=== PATIENT | male | born 1995 | race American Indian/Alaskan Native ===

== ENCOUNTER 2017-02-19 04:41 | Emergency (ER) | payer MEDICAID ==
[2017-02-19 05:01] VITALS: BP 121/84
[2017-02-19] MEDS ORDERED: TYLENOL ONE (05:02)
[2017-02-19] MEDS ORDERED: TYLENOL PO ONE (05:02)
[2017-02-19 05:42] LABS: Basophils % (Auto) 0.1 % (0.0-1.8); Eosinophils % (Auto) 0.1 % (0.0-4.3); Hematocrit 45.8 % (35.5-45.6); Hemoglobin 14.9 gm/dl (11.8-15.2); Mean Corpuscular HGB Conc 33 % (32-34); Mean Corpuscular Hemoglobin 27 pg (28-32); Mean Corpuscular Volume 83 fl (84-94); Platelet Count 247 K/mm3 (140-440); Red Blood Count 5.56 M/mm3 (3.65-5.03); Red Cell Distribution Width 15.6 % (13.2-15.2)
[2017-02-19 06:13] LABS: Anion Gap 17 mmol/L; Blood Urea Nitrogen 10 mg/dL (9-20); Carbon Dioxide 26 mmol/L (22-30); Chloride 101.9 mmol/L (98-107); Glucose 97 mg/dL (75-100); Potassium 4.1 mmol/L (3.6-5.0); Sodium 141 mmol/L (137-145)
[2017-02-19] MEDS ORDERED: PERCOCET 5/325 PO ONE (06:33)
--- NOTE | 2017-02-19 06:38 | Emergency Department Report ---
Chief Complaint: Rectal Pain Stated Complaint: HEMORRHOIDS Time Seen by Provider: 02/19/17 05:45 - HPI History of Present Illness: Patient here complaining of rectal pain and states he has a hemorrhoid since yesterday. Last bowel movement was 3 days ago. Denies any rectal bleeding. Denies any nausea or vomiting. Denies any fever or chills. Patient has a history of multiple abscess and anemia. Reports pain is 8-9 out of 10. - ROS Review of Systems: All systems are negative unless stated in HPI above - Exam Vital Signs: Vital Signs 02/19/17 04:54 Temperature 98.7 F Pulse Rate 105 H Respiratory 20 Rate Blood Pressure 121/84 O2 Sat by Pulse 99 Oximetry Physical Exam: Gen.: This is a 21-year-old male well-nourished well-developed in no acute distress. Rectal: No hemorrhoids noted. No overt signs of bleeding. Patient with tender indurated area to buttocks MSE screening note: Focused history and physical exam performed. Due to findings the following was ordered:see [facility] ED Medical Decision Making - Lab Data Result diagrams: 02/19/17 05:10 02/19/17 05:10 Lab Results 02/19/17 02/19/17 02/19/17 Range/Units 05:10 05:10 06:09 WBC 16.0 H (4.5-11.0) K/mm3 RBC 5.56 H (3.65-5.03) M/mm3 Hgb 14.9 (11.8-15.2) gm/dl Hct 45.8 H (35.5-45.6) % MCV 83 L (84-94) fl MCH 27 L (28-32) pg MCHC 33 (32-34) % RDW 15.6 H (13.2-15.2) % Plt Count 247 (140-440) K/mm3 Lymph % (Auto) 12.6 L (13.4-35.0) % [place] % (Auto) 6.9 (0.0-7.3) % Eos % (Auto) 0.1 (0.0-4.3) % Baso % (Auto) 0.1 (0.0-1.8) % Lymph # 2.0 (1.2-5.4) K/mm3 [place] # 1.1 H (0.0-0.8) K/mm3 Eos # 0.0 (0.0-0.4) K/mm3 Baso # 0.0 (0.0-0.1) K/mm3 Seg Neutrophils % 80.3 H (40.0-70.0) % Seg Neutrophils # 12.9 H (1.8-7.7) K/mm3 Sodium 141 (137-145) mmol/L Potassium 4.1 (3.6-5.0) mmol/L Chloride 101.9 (98-107) mmol/L Carbon Dioxide 26 (22-30) mmol/L Anion Gap 17 mmol/L BUN 10 (9-20) mg/dL Creatinine 1.0 (0.8-1.5) mg/dL Estimated GFR > 60 ml/min BUN/Creatinine Ratio 10.00 % Glucose 97 (75-100) mg/dL Lactic Acid 0.70 (0.7-2.0) mmol/L Calcium 10.0 (8.4-10.2) mg/dL Urine culture pending Urinalysis ordered and pending Blood cultures ordered and pending - Medical Decision Making MDM: Patient screened by provider and appropriate orders placed. Patient noted to have elevated white count. Additional orders for urine UA and cultures, pain medication and blood cultures. Patient is stable at present awaiting INT to be place. ED Disposition for MSE Condition: Stable
[2017-02-19 07:12] LABS: Alanine Aminotransferase 31 units/L (7-56); Albumin 4.6 g/dL (3.9-5); Albumin/Globulin Ratio 1.3 %; Alkaline Phosphatase 74 units/L (35-129); Total Protein 8.1 g/dL (6.3-8.2)
[2017-02-19 07:14] LABS: Bilirubin,Direct < 0.2 mg/dL (0-0.2); Bilirubin,Indirect 0.1 mg/dL
[2017-02-19 07:36] LABS: Bilirubin,Urine SM (Negative); Blood,Urine NEG (Negative); Ketones,Urine TR mg/dL (Negative); Leukocyte Esterase,Urine NEG (Negative); Mucus,Urine 3+ /HPF; Nitrite,Urine NEG (Negative)
--- NOTE | 2017-02-19 08:49 | Emergency Department Report ---
ED General Adult HPI - General Chief complaint: Rectal Pain Stated complaint: HEMORRHOIDS Time Seen by Provider: 02/19/17 06:37 Source: patient Mode of arrival: Ambulatory Limitations: No Limitations - History of Present Illness Initial comments: Patient is a 21-year-old male here with complaint of multiple skin lesions and pain around the rectum. Patient likely has a history of hidradenitis suppurativa and has had multiple lesions in the past. The last few days he's had worsening pain around his buttocks. Denies fevers chills nausea vomiting. Last bowel movement approximately 3 days ago. -: Gradual, days(s) (3) Location: buttocks Radiation: non-radiation Severity scale (0 -10): 8 Consistency: constant Improves with: none Worsens with: none Associated Symptoms: denies other symptoms - Related Data Previous Rx's Medication Instructions Recorded Last Taken Type Clindamycin [Clindamycin CAP] 300 mg PO Q8H #30 cap 02/19/17 Unknown Rx Docusate Sodium [Colace] 100 mg PO BID PRN #30 capsule 02/19/17 Unknown Rx Ibuprofen [Motrin] 600 mg PO Q8H PRN #30 tablet 02/19/17 Unknown Rx Allergies Allergy/AdvReac Type Severity Reaction Status Date / Time peanut Allergy Swelling Verified 10/30/14 04:17 ED Review of Systems ROS: Stated complaint: HEMORRHOIDS Other details as noted in HPI Comment: All other systems reviewed and negative Constitutional: denies: chills, fever ENT: denies: ear pain Respiratory: denies: cough, orthopnea Cardiovascular: denies: chest pain Endocrine: denies: see HPI, excessive sweating Gastrointestinal: constipation. denies: abdominal pain, nausea, diarrhea Musculoskeletal: denies: back pain Neurological: denies: headache, weakness Psychiatric: denies: anxiety, depression ED Past Medical Hx - Past Medical History Previous Medical History?: Yes Additional medical history: anemia - Surgical History Past Surgical History?: Yes Additional Surgical History: foot surgery. - Family History Family history: no significant - Social History Smoking Status: Current Every Day Smoker Substance Use Type: Alcohol - Medications Home Medications: Home Medications Medication Instructions Recorded Confirmed Last Taken Type Clindamycin [Clindamycin CAP] 300 mg PO Q8H #30 cap 02/19/17 Unknown Rx Docusate Sodium [Colace] 100 mg PO BID PRN #30 capsule 02/19/17 Unknown Rx Ibuprofen [Motrin] 600 mg PO Q8H PRN #30 tablet 02/19/17 Unknown Rx ED Physical Exam - General Limitations: No Limitations General appearance: alert, in no apparent distress - Head Head exam: Present: atraumatic, normocephalic - Eye Eye exam: Present: normal appearance - ENT ENT exam: Present: mucous membranes moist - Neck Neck exam: Present: normal inspection. Absent: lymphadenopathy, thyromegaly - Respiratory Respiratory exam: Present: normal lung sounds bilaterally. Absent: respiratory distress, wheezes, rales - Cardiovascular Cardiovascular Exam: Present: regular rate, normal rhythm. Absent: systolic murmur, diastolic murmur, rubs, gallop - GI/Abdominal GI/Abdominal exam: Present: soft, normal bowel sounds, other (tenderness on the left buttock no fluctuance) - Rectal Rectal exam: Present: deferred, other (inspection without localized abscess assessed to rectum) - Extremities Exam Extremities exam: Present: normal inspection, other (swelling in the axillas and groin consistent with likely hidradenitis subacute) - Back Exam Back exam: Present: normal inspection - Neurological Exam Neurological exam: Present: alert, oriented X3 - Psychiatric Psychiatric exam: Present: normal affect, normal mood - Skin Skin exam: Present: warm, dry, intact, normal color. Absent: rash ED Course Vital Signs 02/19/17 04:54 Temperature 98.7 F Pulse Rate 105 H Respiratory 20 Rate Blood Pressure 121/84 O2 Sat by Pulse 99 Oximetry ED Medical Decision Making - Lab Data Result diagrams: 02/19/17 05:10 02/19/17 05:10 Laboratory Results - last 24 hr 02/19/17 02/19/17 02/19/17 05:10 05:10 06:09 WBC 16.0 H RBC 5.56 H Hgb 14.9 Hct 45.8 H MCV 83 L MCH 27 L MCHC 33 RDW 15.6 H Plt Count 247 Lymph % (Auto) 12.6 L [place] % (Auto) 6.9 Eos % (Auto) 0.1 Baso % (Auto) 0.1 Lymph # 2.0 [place] # 1.1 H Eos # 0.0 Baso # 0.0 Seg Neutrophils % 80.3 H Seg Neutrophils # 12.9 H Sodium 141 Potassium 4.1 Chloride 101.9 Carbon Dioxide 26 Anion Gap 17 BUN 10 Creatinine 1.0 Estimated GFR > 60 BUN/Creatinine Ratio 10.00 Glucose 97 Lactic Acid Calcium 10.0 Total Bilirubin 0.30 Direct Bilirubin < 0.2 Indirect Bilirubin 0.1 AST 23 ALT 31 Alkaline Phosphatase 74 Total Protein 8.1 Albumin 4.6 Albumin/Globulin Ratio 1.3 Urine Color Urine Turbidity Urine pH Ur Specific [place] Urine Protein Urine Glucose (UA) Urine Ketones Urine Blood Urine Nitrite Urine Bilirubin Urine Ictotest Urine Urobilinogen Ur Leukocyte Esterase Urine WBC (Auto) Urine RBC (Auto) U Epithel Cells (Auto) Urine Mucus 02/19/17 02/19/17 06:09 06:50 WBC RBC Hgb Hct MCV MCH MCHC RDW Plt Count Lymph % (Auto) [place] % (Auto) Eos % (Auto) Baso % (Auto) Lymph # [place] # Eos # Baso # Seg Neutrophils % Seg Neutrophils # Sodium Potassium Chloride Carbon Dioxide Anion Gap BUN Creatinine Estimated GFR BUN/Creatinine Ratio Glucose Lactic Acid 0.70 Calcium Total Bilirubin Direct Bilirubin Indirect Bilirubin AST ALT Alkaline Phosphatase Total Protein Albumin Albumin/Globulin Ratio Urine Color [place] Urine Turbidity Clear Urine pH 5.0 Ur Specific [place] 1.043 H Urine Protein 100 mg/dl Urine Glucose (UA) Neg Urine Ketones Tr Urine Blood Neg Urine Nitrite Neg Urine Bilirubin Sm Urine Ictotest Negative Urine Urobilinogen 2.0 Ur Leukocyte Esterase Neg Urine WBC (Auto) 2.0 Urine RBC (Auto) 10.0 U Epithel Cells (Auto) 1.0 Urine Mucus 3+ - Medical Decision Making 21-year-old male here with complaint of buttock pain. Patient has undiagnosed history of what appears to be hidradenitis suppurtiva. His left buttock is tender and slightly warm. There is no sense of fluctuance. I do not suspect he has an abscess. He is a slightly elevated white blood cell count. I plan to put him on clindamycin 300 mg 3 times a day for 10 days and will refer him to dermatology. Portions of this chart were dictated with dictation software. There may be dictation errors contained within this note. Critical care attestation.: If time is entered above; I have spent that time in minutes in the direct care of this critically ill patient, excluding procedure time. ED Disposition Clinical Impression: Cellulitis of buttock, left, Hidradenitis suppurativa Disposition: DC-01 TO HOME OR SELFCARE Is pt being admited?: No Condition: Stable Instructions: Cellulitis (ED) Additional Instructions: Please return to the emergency department should he develop a fever or worsening swelling. 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 Prescriptions: Clindamycin [Clindamycin CAP] 300 mg PO Q8H #30 cap Docusate Sodium [Colace] 100 mg PO BID PRN #30 capsule PRN Reason: Constipation Ibuprofen [Motrin] 600 mg PO Q8H PRN #30 tablet PRN Reason: Pain Referrals: PRIMARY CARE, [Primary Care Provider] - 3-5 Days
[2017-02-19] MEDS ORDERED: CLEOCIN PO ONE (08:51)
[2017-02-19] MEDS ORDERED: MOTRIN PO ONE (08:51)
== END 2017-02-19 09:30 | disposition home or self-care (01) ==
LOC: ED 04:41
DX: L03.317 Cellulitis of buttock (principal); L73.2 Hidradenitis suppurativa; F17.200 Nicotine dependence, unspecified, uncomplicated
CPT/HCPCS: 36415; 80048; 80074; 81001; 82140; 85025; 87040; 87086

== ENCOUNTER 2021-12-31 03:31 | Emergency (ER) | payer MEDICAID ==
[2021-12-31 03:36] VITALS: BP 108/78
[2021-12-31] MEDS ORDERED: LIDOCAINE VISCOUS 2% 15 ML ORAL LIQD MM ONE (04:20)
[2021-12-31] MEDS ORDERED: oxyCODONE /ACETAMINOPHEN 5-325MG TAB PO ONE (04:20)
--- NOTE | 2021-12-31 06:00 | Emergency Department Report ---
ED ENT HPI - General Chief complaint: Dental/Oral Stated complaint: DENTAL PAIN Time Seen by Provider: 12/31/21 04:20 Source: patient, family Mode of arrival: Wheelchair Limitations: No Limitations - History of Present Illness Initial comments: 26-year-old male gentleman department planing of a few day history of progressive worsening dental pain to the right molar area of unknown etiology. Pain is dull and throbbing worse with palpation range of motion opening to him and radiates up to the ear and down the neck. Ports no fever, chills, sweats. No chest pain palpitation. No nausea vomiting MD complaint: tooth pain -: Gradual Severity: moderate, severe Quality: dull Consistency: constant - Related Data Previous Rx's Medication Instructions Recorded Last Taken Type Clindamycin [Clindamycin CAP] 300 mg PO Q8H #30 cap 02/19/17 Unknown Rx Docusate Sodium [Colace] 100 mg PO BID PRN #30 capsule 02/19/17 Unknown Rx Ibuprofen [Motrin] 600 mg PO Q8H PRN #30 tablet 02/19/17 Unknown Rx Amoxicillin [Amoxicillin TAB] 875 mg PO BID #20 tablet 12/31/21 Unknown Rx Ketorolac [Toradol] 10 mg PO Q6H PRN #15 tablet 12/31/21 Unknown Rx Lidocaine Viscous 2% 5 ml MM Q3H PRN #120 udc 12/31/21 Unknown Rx Allergies Allergy/AdvReac Type Severity Reaction Status Date / Time peanut Allergy Swelling Verified 10/30/14 04:17 ED Dental HPI - General Chief complaint: Dental/Oral Stated complaint: DENTAL PAIN Time Seen by Provider: 12/31/21 04:20 Source: patient, family Mode of arrival: Wheelchair Limitations: No Limitations - Related Data Previous Rx's Medication Instructions Recorded Last Taken Type Clindamycin [Clindamycin CAP] 300 mg PO Q8H #30 cap 02/19/17 Unknown Rx Docusate Sodium [Colace] 100 mg PO BID PRN #30 capsule 02/19/17 Unknown Rx Ibuprofen [Motrin] 600 mg PO Q8H PRN #30 tablet 02/19/17 Unknown Rx Amoxicillin [Amoxicillin TAB] 875 mg PO BID #20 tablet 12/31/21 Unknown Rx Ketorolac [Toradol] 10 mg PO Q6H PRN #15 tablet 06/23/22 Unknown Rx Lidocaine Viscous 2% 5 ml MM Q3H PRN #120 udc 12/31/21 Unknown Rx Allergies Allergy/AdvReac Type Severity Reaction Status Date / Time peanut Allergy Swelling Verified 10/30/14 04:17 ED Review of Systems ROS: Stated complaint: DENTAL PAIN Other details as noted in HPI Comment: All other systems reviewed and negative ED Past Medical Hx - Past Medical History Additional medical history: anemia - Surgical History Additional Surgical History: foot surgery. - Social History Smoking Status: Current Every Day Smoker Substance Use Type: Alcohol - Medications Home Medications: Home Medications Medication Instructions Recorded Confirmed Last Taken Type Clindamycin [Clindamycin CAP] 300 mg PO Q8H #30 cap 02/19/17 Unknown Rx Docusate Sodium [Colace] 100 mg PO BID PRN #30 capsule 02/19/17 Unknown Rx Ibuprofen [Motrin] 600 mg PO Q8H PRN #30 tablet 02/19/17 Unknown Rx Amoxicillin [Amoxicillin TAB] 875 mg PO BID #20 tablet 12/31/21 Unknown Rx Ketorolac [Toradol] 10 mg PO Q6H PRN #15 tablet 12/31/21 Unknown Rx Lidocaine Viscous 2% 5 ml MM Q3H PRN #120 udc 12/31/21 Unknown Rx ED Physical Exam - General Limitations: No Limitations General appearance: alert, in no apparent distress - Head Head exam: Present: atraumatic, normocephalic - Eye Eye exam: Present: normal appearance - ENT ENT exam: Present: mucous membranes moist, other (Diffuse dental caries throughout with with dental tenderness to the right lower molar region mild adjacent gingival erythema with some swelling noted. No peritonsillar abscess noted. Voice is normal no drooling is appreciated normal swallowing.) - Neck Neck exam: Present: normal inspection, lymphadenopathy (Right tonsillar) - Respiratory Respiratory exam: Present: normal lung sounds bilaterally. Absent: respiratory distress, wheezes, rales, chest wall tenderness, accessory muscle use - Cardiovascular Cardiovascular Exam: Present: regular rate, normal rhythm. Absent: systolic murmur, diastolic murmur, rubs, gallop - GI/Abdominal GI/Abdominal exam: Present: soft, normal bowel sounds - Rectal Rectal exam: Present: deferred - Extremities Exam Extremities exam: Present: normal inspection - Back Exam Back exam: Present: normal inspection - Neurological Exam Neurological exam: Present: alert, oriented X3 - Psychiatric Psychiatric exam: Present: normal affect, normal mood - Skin Skin exam: Present: warm, dry, intact, normal color. Absent: rash ED Course Vital Signs 12/31/21 03:35 Temperature 98.8 F Pulse Rate 77 Respiratory 16 Rate Blood Pressure 108/78 O2 Sat by Pulse 100 Oximetry Critical care attestation.: If time is entered above; I have spent that time in minutes in the direct care of this critically ill patient, excluding procedure time. ED Disposition Clinical Impression: Dentalgia, Infected dental caries Disposition: HOME / SELF CARE / HOMELESS Is pt being admited?: No Does the pt Need Aspirin: No Condition: Stable Instructions: Acute Pain, Adult, Preventive Dental Care, Adult Prescriptions: Amoxicillin [Amoxicillin TAB] 875 mg PO BID #20 tablet Lidocaine Viscous 2% 5 ml MM Q3H PRN #120 udc PRN Reason: Pain, Moderate (4-6) Ketorolac [Toradol] 10 mg PO Q6H PRN #15 tablet PRN Reason: Pain Referrals: [facility] [Provider Group] - 3-5 Days
== END 2021-12-31 06:14 | disposition home or self-care (01) ==
LOC: ED 03:31
DX: K02.9 Dental caries, unspecified (principal); K08.89 Other specified disorders of teeth and supporting structures; D64.9 Anemia, unspecified; Z98.890 Other specified postprocedural states; F17.290 Nicotine dependence, other tobacco product, uncomplicated; Z91.010 Allergy to peanuts
CPT/HCPCS: 99283